=== PATIENT | female | born 1970 | race Two or more races ===

== ENCOUNTER 2024-03-22 18:03 | Inpatient (IN) | payer MEDICAID, OTHER ==
[~2024-03-22] VITALS: Ht 165.1 cm; Wt 68.0 kg
[2024-03-22 18:03] VITALS: PULSE 81; RESP 25; TEMP 98.3; O2SAT 98
[2024-03-22 18:30] LABS: Basophils # (auto) 0.1 10 ^3/uL (0-0.2); Eosinophils # (auto) 0.3 10 ^3/uL (0-0.8); Eosinophils % (auto) 2.8 % (0.0-7.0); Hemoglobin 12.8 g/dL (12.2-16.2); Lymphocytes # (auto) 4.3 10 ^3/uL (0.4-5.4); Mean Corpuscular Hemoglobin 25.5 pg (28.0-32.0); Monocytes # (auto) 0.7 10 ^3/uL (0-1.3); Nucleated Red Blood Cells % 0.1 %
[2024-03-22 18:32] LABS: Basophils % (auto) 0.6 % (0.0-2.0); Lymphocytes % (auto) 47.2 % (10.0-50.0); Mean Corpuscular Volume 79.6 fL (80.0-100.0); Monocytes % (auto) 7.4 % (0.0-12.0); Neutrophils # (auto) 3.8 10 ^3/uL (1.6-8.6); Red Blood Cells 5.02 10^6/uL (4.0-5.20); Red Cell Distribution Width 14.9 % (11.8-14.3); White Blood Cell 9.1 10^3/uL (4.4-10.8)
[2024-03-22 18:34] LABS: Chloride 108 mmol/L (98-107); Potassium 3.2 mmol/L (3.5-5.1); Sodium 140 mmol/L (136-145)
[2024-03-22 18:35] LABS: Anion Gap 4 (5-15); Calcium 9.5 mg/dL (8.7-10.4); Carbon Dioxide 28 mmol/L (20-30)
[2024-03-22 18:40] LABS: BUN/Creatinine Ratio 20.5 (10.0-20.0); Blood Alcohol < 3.0 mg/dL (<10); Blood Urea Nitrogen 16 mg/dL (9-23); Glucose 110 mg/dL (74-106)
[2024-03-22 19:01] LABS: Urine Bacteria FEW /hpf (None Seen); Urine Blood 2+ /uL (Negative); Urine Clarity Turbid (Clear); Urine Color Yellow (Yellow); Urine Hyaline Cast FEW /lpf (0 - 2); Urine Mucus FEW (None Seen); Urine Protein, UAD 1+ (Negative); Urine Specific Gravity 1.033 (1.001-1.035); Urine Urobilinogen Normal (Negative); Urine WBC 14 /hpf (0 - 5); Urine pH 5.5 (5.0-9.0)
[2024-03-22] MEDS: SODIUM CHLORIDE 0.9% 3,000 ML IV ONE (19:27)
[2024-03-22 19:38] LABS: Amphetamine Screen, Urine Neg (NEGATIVE); Barbiturate Scree,Urine Neg (NEGATIVE); Benzodiazephine Screen, Urine Neg (NEGATIVE); Cannabinoid Screen, Urine Pos (NEGATIVE); Cocaine Screen, Urine Neg (NEGATIVE); Opiate Scree,Urine Neg (NEGATIVE); Phencyclidine Screen, Urine Neg (NEGATIVE)
[2024-03-22 19:52] LABS: COVID19 ANTIGEN SOFIA FIA NEGATIVE (NEGATIVE)
[2024-03-22 20:00] VITALS: BP 89/50
[2024-03-22 21:11] VITALS: PULSE 72; RESP 17; O2SAT 100
[2024-03-22] MEDS ORDERED: HYDROcodone-ACET 5/325MG TAB PO PRN (21:30)
[2024-03-22] MEDS ORDERED: ONDANSETRON HCL 4 MG/2 ML VIAL IV PRN (21:30)
[2024-03-22] MEDS ORDERED: ACETAMINOPHEN 325 MG TAB PO PRN (21:30)
[2024-03-22] MEDS ORDERED: DOCUSATE SOD 100 MG CAP PO PRN (21:30)
[2024-03-22] MEDS ORDERED: cefTRIAXone 1GM/50ML D5W 50 ML IV SCH (21:30)
[2024-03-22] MEDS ORDERED: POTASSIUM CHL 20 Meq TABLET PO ONE (21:45)
[2024-03-22] MEDS ORDERED: SODIUM CHLOR 0.9% PF (SALINE LOCK) 10ML VIAL/SYR IV SCH (22:00)
[2024-03-23] MEDS ORDERED: ENOXAPARIN SOD 40 MG/0.4 ML SYRINGE SC SCH (10:00)
== END 2024-03-22 21:40 | disposition left against medical advice (07) | DRG 204 ==
LOC: ER 18:03 → TELE 21:29
PROVIDERS: ADMIT Internal Medicine; ATTEND Internal Medicine
DX: I95.1 Orthostatic hypotension (principal); F12.90 Cannabis use, unspecified, uncomplicated; Z53.29 Procedure and treatment not carried out because of patient's decision for other reasons; Z79.899 Other long term (current) drug therapy; Z88.0 Allergy status to penicillin; R53.1 Weakness
CPT/HCPCS: 36415; 70450; 71045; 80048; 80307; 80320; 81001; 83605; 84484; 85025; 87086; 87426; G0378